=== PATIENT | male | born 1945 ===

== ENCOUNTER 2017-08-31 14:34 | Emergency (ER) | payer MEDICARE ==
[2017-08-31 16:30] VITALS: BP 155/70
--- NOTE | 2017-08-31 17:04 | UC ---
[facility] Trauma HPI - HPI Summary HPI Summary: 71 yo male with left lateral/post rib pain fell and hit left lat chest on curb 6 days ago no f/c no sob hurts to lay on left side no blood in urine denies other injury - History Of Current Complaint Chief Complaint: UCGeneralIllness Stated Complaint: PAIN LFT SIDE (RIBS) S/P FALL 1 WEEK AGO Time Seen by Provider: 08/31/17 16:52 Hx Obtained From: Patient Onset/Duration: Sudden Onset, Lasting Days Severity Initially: Severe Severity Currently: Severe Pain Intensity: 8 Pain Scale Used: 0-10 Numeric Mechanism Of Injury: Fall From A Standing Position Aggravating Factor(s): Deep Breathing, Other - laying on LEFT side Associated Signs And Symptoms: Positive: Chest Pain - Allergies/Home Medications Allergies/Adverse Reactions: Allergies Allergy/AdvReac Type Severity Reaction Status Date / Time Beta-Blockers Allergy Shortness Verified 08/31/17 16:15 (Beta-Adrenergic Bloc of Breath Home Medications: Home Medications Albuterol HFA INHALER* [Ventolin HFA Inhaler*] 1 puff BID PRN 08/31/17 [History Confirmed 08/31/17] Bp Med 1 tab DAILY 08/31/17 [History Confirmed 08/31/17] Glaucoma Eye Drops 1 allen BID 08/31/17 [History Confirmed 08/31/17] Hydrochlorothiazide TAB* [Hydrodiuril TAB*] 25 mg PO DAILY 08/31/17 [History Confirmed 08/31/17] Tiotropium CAP.INH* [Spiriva CAP.INH*] 1 cap DAILY 08/31/17 [History Confirmed 08/31/17] hydrALAZINE TAB* [Apresoline TAB*] 2 tab TID 08/31/17 [History Confirmed ] metFORMIN* [Glucophage 850 MG TAB *] 850 mg TID 08/31/17 [History Confirmed ] PMH/Surg Hx/FS Hx/Imm Hx Previously Healthy: Yes Endocrine History: Diabetes Cardiovascular History: Hypertension Respiratory History: COPD, Asthma - Surgical History Surgical History: Yes Surgery Procedure, Year, and Place: [id number]-[id number]-stoma reversal - Social History Alcohol Use: Occasionally Substance Use Type: None Smoking Status (MU): Former Smoker Review of Systems Constitutional: Negative Skin: Negative Eyes: Negative ENT: Negative Respiratory: Negative Cardiovascular: Chest Pain Gastrointestinal: Negative Genitourinary: Negative Motor: Negative Neurovascular: Negative Musculoskeletal: Negative Neurological: Negative Psychological: Negative Is Patient Immunocompromised?: No All Other Systems Reviewed And Are Negative: Yes Physical Exam Triage Information Reviewed: Yes Appearance: Well-Appearing, No Pain Distress, Well-Nourished Vital Signs: Initial Vital Signs Temp 99.5 F 08/31/17 16:20 Pulse 98 08/31/17 16:20 Resp 20 08/31/17 16:20 BP 155/70 08/31/17 16:20 Pulse Ox 95 08/31/17 16:20 Vital Signs Reviewed: Yes Eyes: Positive: Conjunctiva Clear ENT: Positive: Hearing grossly normal. Negative: Nasal congestion, Nasal drainage, Muffled voice, Hoarse voice, Dental tenderness Neck: Positive: Supple, Nontender, No Lymphadenopathy Respiratory: Positive: Wheezing - left side. Negative: No accessory muscle use , Respiratory distress, Decreased breath sounds Cardiovascular: Positive: RRR, No Murmur Abdomen Description: Positive: Nontender, No Organomegaly, Soft. Negative: CVA Tenderness (R), CVA Tenderness (L) Musculoskeletal: Positive: ROM Intact, No Edema Neurological: Positive: Muscle Tone Normal Psychological Exam: Normal Skin Exam: Normal Diagnostics - Laboratory Diagnostic Studies Completed/Ordered: pOx 95% comment - low normal/ not hypoxic - Radiology No standard instances Xray Interpretation: Positive (See Comments) - Fractures of the left seventh and possibly ninth rib posteriorly. No pneumothorax is present. Radiology Interpretation Completed By: Radiologist [place] Trauma Course/Dx - Differential Dx/Diagnosis Provider Diagnoses: fall. rib fracture(s). bronchospasm Discharge - Discharge Plan Condition: Stable Disposition: HOME Prescriptions: Naproxen Sodium [Naproxen Sodium 500 MG TAB] 500 mg PO BID PRN #30 tab PRN Reason: Pain Patient Education Materials: Rib Fracture (ED) Referrals: Aida Combs MD [Primary Care Provider] - 1 Week Additional Instructions: use your albuterol inhaler 2 puffs four times a day for about a week take deep breaths every hour while awake
--- NOTE | 2017-08-31 17:36 | RAD ---
Indication: Fall, left chest injury 4 views of left ribs including dual energy PA views of the chest demonstrates fracture of the left sixth and seventh ribs posteriorly. There may be fracture of the left ninth rib posteriorly as well. No pneumothorax is noted. No pleural fluid or alveolar consolidation is noted. IMPRESSION: Fractures of the left seventh and possibly ninth rib posteriorly. No pneumothorax is present.
[2017-08-31] MEDS ORDERED: Albuterol 2.5 MG/3 ML NEB.SOL* (0.083%) INH ONE (17:41)
== END 2017-08-31 18:15 | disposition home or self-care (01) ==
LOC: UCCORT 14:34
DX: S22.32XA Fracture of one rib, left side, initial encounter for closed fracture (principal); W19.XXXA Unspecified fall, initial encounter; Y93.9 Activity, unspecified; Y92.480 Sidewalk as the place of occurrence of the external cause; J44.9 Chronic obstructive pulmonary disease, unspecified; I10 Essential (primary) hypertension; Z79.84 Long term (current) use of oral hypoglycemic drugs; E11.9 Type 2 diabetes mellitus without complications; Z87.891 Personal history of nicotine dependence
CPT/HCPCS: 81003; 99202; G0463